=== PATIENT | male | born 1945 | race Two or more races ===

== ENCOUNTER 2024-04-22 13:39 | Outpatient (AMB) | payer MEDICARE, BC, SELFPAY ==
[2024-04-22 14:05] VITALS: BP 149/85; PULSE 71; RESP 19; TEMP 36.6; O2SAT 95; BMI 33.0
--- NOTE | 2024-04-22 14:05 | PD.ORTHCLVIS ---
Vital signs 04/22/24 14:05 Height 1.78 m Height Method Stated Weight 104.326 kg Weight Measurement Method Standing Scale BMI 33.0 BP 149/85 H Blood Pressure Source Automatic Cuff Blood Pressure Location Left Upper Arm Position Sitting Respiration 19 Pulse 71 Pulse Source Monitor Temp 97.9 F Temp Source Temporal Artery Scan Pulse Oximetry (%) 95 Oxygen Delivery Method Room Air Med/Allergies Allergies & Medications Allergies No Known Allergies Allergy (Verified 04/22/24 14:06) Medication Reconciliation lisinopril 20 mg tablet 20 mg PO QDAY 01/02/22 [History Confirmed 04/22/24] amlodipine 5 mg tablet 5 mg PO DAILY 01/06/22 [History Confirmed 04/22/24] pantoprazole 40 mg tablet,delayed release (Protonix) 40 mg PO BID #60 tabs 01/06/22 [Rx Confirmed 04/22/24] diclofenac sodium 1 % topical gel 4 g topical QID #100 grams 04/22/24 [Rx] Exam Exam Patient is in no acute distress and is cooperative with the examination today. Breathing is nonlabored. In no respiratory distress. Bilateral extremities were evaluated and demonstrates sensation intact to light touch. Palpable pedal pulses are present. No significant edema is present. Bilateral hips were examined. The patient has no pain with log roll of the hips. Internal rotation to 30 degrees and external rotation to 30 degrees is painless. Negative FADIR. The left knee was examined. The left knee is in varus alignment. Range of motion from 0-115 degrees. Knee is stable to varus and valgus as well as AP translation with <5mm. Patient has a negative McMurrays. There is no pain with patellofemoral compression and no crepitus noted. The knee is tender to palpation medially. The right knee was also examined. The right knee is in varus alignment. Range of motion from 0-120 degrees. Knee is stable to varus and valgus as well as AP translation with <5mm. Patient has a negative McMurrays. There is no pain with patellofemoral compression and no crepitus noted. The knee is tender to palpation medially. Assessment and Plan Problem List (1) Degenerative arthritis of knee, bilateral: Status: Acute Plan: Patient is an 79-year-old male with bilateral knee pain and bilateral knee arthritis worse on the left. We discussed topical anti-inflammatories and injections. He would like injections today. Recommend knee cortisone injection as patient would like to proceed with conservative treatment at this time. The risks and benefits of the procedure were reviewed with the patient and patient gave verbal consent to continue with the procedure. Procedure: performed by Dr. Madrid Using sterile technique the left knee was thoroughly prepped with alcohol, and approximately 1 cc of Kenalog 40 mg/mL and 4 cc of 1% lidocaine was injected without resistance into the medial tibial femoral joint space. The patient tolerated the procedure. Advanced Care Planning Discussion Advance care planning discussed with:: patient Office Procedures GNS Level of Care Nursing/Assessment Patient Status: Established Patient Nursing Assessment/Reassesment: Medication Reconciliation and Vital Signs Coordination of Care: Complex Care and Chronic Disease 1-5, Education Complex Pt/Fam, Consent,records obtained, informed consent, 1 Ins Authorization, Lab and Imaging orders, Results/Orders obtained and Staff clarify orders Established Patient Charge Established Patient Point Assignment: 115 Established Patient Point Charge: EP Level 3 (80-115) Surgical Proc/IM SQ injection Major Surgical Procedure: Yes (KNEE INJECTION) Medication Given Medication Given Medication Given: Yes Documented Dose Given: 4 Route: Infiitration Medication Given Medication Given Medication Given: Yes Documented Dose Given: 4 Route: Infiitration Office Meds Xylocaine 10 mg/mL (1 %) injection solution Performing Provider: Dusty Madrid MD Performing Location: [facility] Administered by: Dusty Madrid MD on 04/22/24 14:47 Dose Route Admin Location Dispensed Lot Number Expiration Date [facility] Jalousie Installer 20 mL Infiltration KNEE 20 mL [id number] 06/23/27 45010-461-49 [facility] triamcinolone acetonide 40 mg/mL suspension for injection Performing Provider: Dusty Madrid MD Performing Location: [facility] Administered by: Dusty Madrid MD on 04/22/24 14:47 Dose Route Admin Location Dispensed Lot Number Expiration Date [facility] J[employer] Installer 40 mg infiltration KNEE 1 mL [id number] 07/22/25 7006-5814-23 [facility] [place] Intake Visit Data Collection New Patient or Established: Established Patient (seen at [facility] within 3 years) Reason for Visit:: BILATERAL KNEE PAIN PCP or OBGYN visit in last 3 months: Yes Hx Now: No Do You Feel Safe at Home: Yes Authorities Contacted: N/A Questionairres Past Medical History Past Medical History Have you ever been diagnosed with any of the following: Neurological Problems Seizures: No Cardiology Problems Hypercholesterolemia: No Congestive Heart Failure: No Hypertension: Yes Respiratory Problems Chronic Obstructive Pulmonary Disease (COPD): No Asthma: No Sleep Apnea: No Genital/Urinary Problems Renal Disease: No Musculoskeletal Problems Arthritis: Yes Endocrine Problems Diabetes Mellitus Type 1: No Diabetes Mellitus Type 2: No Blood Problems Anemia: Yes Psychologic Problems Anxiety: Yes Other Problems Falls: No Blood Transfusions: No Anesthesia Reactions: No Subjective Visit Visit for: new patient and knee (BILATERAL) Immunization / Flu Flu Vaccine in the Last 12 Months: No Flu Vaccine Exclusion Criteria: Refused by Patient History of Present Illness Chief complaint: Left knee pain José Luis is a pleasant 79 year old male with left knee pain for years. He has mostly medial sided pain and swelling with activity. He takes Tylenol. Cannot take NSAIDs due to history of gastric ulcers. He has not tried physical therapy or injections. Uses a cane sometimes. He has weightbearing X-rays from October 2023. Pain Pain level (0-10): 2 Pain location: inside (medial), outside (lateral) and posterior Pain quality: aching Pain timing: night, increases with activity and stairs Associated signs & symptoms: weakness Ambulatory data Ambulatory device: none Treatments Improvement with previous injections: No Improvement with PT: No Improvement with NSAIDS: n/a Review of Systems Review of Systems: All systems negative unless otherwise noted in HPI.
== END 2024-04-22 14:58 | disposition home or self-care (01) ==
PROVIDERS: PCP Family Medicine; Referring Provider Family Medicine; Supervising Provider Orthopaedic Surgery Adult Reconstructive Orthopaedic Surgery; Visit Provider Orthopaedic Surgery Adult Reconstructive Orthopaedic Surgery
DX: M17.0 Bilateral primary osteoarthritis of knee (principal)
CPT/HCPCS: 20610; 99213; J3301; J3490; G0463

== ENCOUNTER 2024-07-26 12:53 | Outpatient (AMB) | payer MEDICARE, BC, SELFPAY ==
--- NOTE | 2024-07-26 13:03 | PD.ORTHCLVIS ---
Vital signs 07/26/24 13:04 Height 1.78 m Height Method Stated Weight 103.532 kg Weight Measurement Method Standing Scale BMI 32.6 BP 164/83 H Blood Pressure Source Automatic Cuff Blood Pressure Location Left Upper Arm Position Sitting Respiration 19 Pulse 78 Pulse Source Monitor Temp 96.7 F L Temp Source Temporal Artery Scan Pulse Oximetry (%) 96 Oxygen Delivery Method Room Air Med/Allergies Allergies & Medications Allergies No Known Allergies Allergy (Verified 07/26/24 13:05) Medication Reconciliation lisinopril 20 mg tablet 20 mg PO QDAY 01/02/22 [History Confirmed 07/26/24] amlodipine 5 mg tablet 5 mg PO DAILY 01/06/22 [History Confirmed 07/26/24] pantoprazole 40 mg tablet,delayed release (Protonix) 40 mg PO BID #60 tabs 01/06/22 [Rx Confirmed 07/26/24] diclofenac sodium 1 % topical gel 4 g topical QID #100 grams 04/22/24 [Rx Confirmed 07/26/24] Exam Exam Patient is in no acute distress and is cooperative with the examination today. Breathing is nonlabored. In no respiratory distress. Bilateral extremities were evaluated and demonstrates sensation intact to light touch. Palpable pedal pulses are present. No significant edema is present. Bilateral hips were examined. The patient has no pain with log roll of the hips. Internal rotation to 30 degrees and external rotation to 30 degrees is painless. Negative FADIR. The left knee was examined. The left knee is in varus alignment. Range of motion from 0-115 degrees. Knee is stable to varus and valgus as well as AP translation with <5mm. Patient has a negative McMurrays. There is no pain with patellofemoral compression and no crepitus noted. The knee is tender to palpation medially. The right knee was also examined. The right knee is in varus alignment. Range of motion from 0-120 degrees. Knee is stable to varus and valgus as well as AP translation with <5mm. Patient has a negative McMurrays. There is no pain with patellofemoral compression and no crepitus noted. The knee is tender to palpation medially. X-rays demonstrate bilateral joint space narrowing with complete obliteration of the medial joint space Assessment and Plan Problem List (1) Degenerative arthritis of knee, bilateral: Status: Acute Plan: Patient is an 79-year-old male with bilateral knee pain and bilateral knee arthritis worse on the left. We discussed topical anti-inflammatories and injections. Has done well with the last cortisone injections. He will call us should the pain worsen Advanced Care Planning Discussion Advance care planning discussed with:: patient Office Procedures GNS Level of Care Nursing/Assessment Patient Status: Established Patient Nursing Assessment/Reassesment: Medication Reconciliation, Update PMH in EMR and Vital Signs Coordination of Care: Complex Care and Chronic Disease 1-5, Education Complex Pt/Fam, Consent,records obtained, informed consent, Results/Orders obtained and Staff clarify orders Established Patient Charge Established Patient Point Assignment: 95 Established Patient Point Charge: EP Level 3 (80-115) MA Intake Visit Data Collection New Patient or Established: Established Patient (seen at [facility] within 3 years) Reason for Visit:: 3 MTH FU L KNEE INJ Seen by Clinical Staff ONLY (RN/MA): No PCP or OBGYN visit in last 3 months: Yes Hx Now: No Do You Feel Safe at Home: Yes Authorities Contacted: N/A Questionairres Past Medical History Past Medical History Have you ever been diagnosed with any of the following: Neurological Problems Seizures: No Cardiology Problems Hypercholesterolemia: No Congestive Heart Failure: No Hypertension: Yes Respiratory Problems Chronic Obstructive Pulmonary Disease (COPD): No Asthma: No Sleep Apnea: No Smoking: No Smoking Exposure: No Genital/Urinary Problems Renal Disease: No Musculoskeletal Problems Arthritis: Yes Endocrine Problems Diabetes Mellitus Type 1: No Diabetes Mellitus Type 2: No Blood Problems Anemia: Yes Psychologic Problems Anxiety: Yes Other Problems Falls: No Blood Transfusions: No Anesthesia Reactions: No Subjective Visit Visit for: follow up visit, knee and injections Immunization / Flu Flu Vaccine in the Last 12 Months: No Flu Vaccine Exclusion Criteria: No Exclusion Criteria History of Present Illness Chief complaint: Left knee pain José Luis is a pleasant 79 year old male with left knee pain for years. He has mostly medial sided pain and swelling with activity. He takes Tylenol. Cannot take NSAIDs due to history of gastric ulcers. He has not tried physical therapy or injections. Uses a cane sometimes. He has weightbearing X-rays from October 2023. Pain Pain level (0-10): 0 Pain location: inside (medial), outside (lateral) and posterior Pain quality: aching Pain timing: night, increases with activity and stairs Associated signs & symptoms: weakness Ambulatory data Ambulatory device: none Treatments Improvement with previous injections: Yes Improvement with PT: No Improvement with NSAIDS: no Review of Systems Review of Systems: All systems negative unless otherwise noted in HPI.
[2024-07-26 13:04] VITALS: BP 164/83; PULSE 78; RESP 19; TEMP 35.9; O2SAT 96; BMI 32.6
== END 2024-07-26 13:27 | disposition home or self-care (01) ==
LOC: HODSRG 12:53
PROVIDERS: PCP Family Medicine; Referring Provider Family Medicine; Supervising Provider Orthopaedic Surgery Adult Reconstructive Orthopaedic Surgery; Visit Provider Orthopaedic Surgery Adult Reconstructive Orthopaedic Surgery
DX: M17.0 Bilateral primary osteoarthritis of knee (principal); M25.562 Pain in left knee; M25.561 Pain in right knee; I10 Essential (primary) hypertension
CPT/HCPCS: 99213; G0463